=== PATIENT | male | born 1985 | race Caucasian/White ===

== ENCOUNTER 2025-07-06 11:55 | Emergency (ER) | payer BC ==
[2025-07-06] MEDS: Ketorolac 30 MG/ML SDV IM ONE (12:10)
[2025-07-06] MEDS ORDERED: Sodium Chloride 0.9% 10 ML Syringe FLUSH PRN (12:11)
[2025-07-06] MEDS ORDERED: Sodium Chloride 0.9% 2.5 ML Syringe FLUSH PRN (12:11)
[2025-07-06 12:42] LABS: BASOPHILS ABSOLUTE AUTO 0.03 K/uL (0.00-0.20); BASOPHILS PERCENT AUTO 0.4 % (0.0-1.0); EOSINOPHILS ABSOLUTE AUTO 0.11 K/uL (0.00-0.45); EOSINOPHILS PERCENT AUTO 1.4 % (0.0-6.0); IMMATURE GRAN ABSOLUTE AUTO 0.03 K/uL (0.00-0.05); IMMATURE GRAN PERCENT AUTO 0.4 % (0.0-0.4); LYMPHOCYTES ABSOLUTE AUTO 1.40 K/uL (1.00-4.80); LYMPHOCYTES PERCENT AUTO 17.9 % (24.0-44.0); MEAN PLATELET VOLUME 10.2 fL (9.4-12.4); MONOCYTES ABSOLUTE AUTO 0.81 K/uL (0.00-0.80); MONOCYTES PERCENT AUTO 10.3 % (0.0-8.0); NEUTROPHILS ABSOLUTE AUTO 5.45 K/uL (1.80-7.70); NEUTROPHILS PERCENT AUTO 69.6 % (41.0-71.0); NRBC ABSOLUTE 0.00 K/uL (0.00-0.02); NRBC PERCENT 0.0 /100WBC (0.0-0.2); PLATELET COUNT,PLT 260 K/uL (150-400); RED BLOOD CELL COUNT 4.48 M/uL (4.52-5.90); WHITE BLOOD CELL COUNT,WBC 7.83 K/uL (3.9-11.3)
[2025-07-06 12:42] LABS: APPEARANCE,URINE CLEAR; GLUCOSE,URINE NEGATIVE (NEGATIVE); OCCULT BLOOD,URINE NEGATIVE (NEGATIVE)
[2025-07-06] MEDS: Ketorolac 30 MG/ML SDV IVPUSH ONE (12:51)
[2025-07-06 13:02] LABS: A/G RATIO 1.0 (0.9-1.6); ALANINE AMINOTRANSFERASE,ALT 37.0 IU/L (14-63); ASPARTATE AMNIOTRANSFERASE,AST 21.0 IU/L (15-37); BILIRUBIN TOTAL 0.4 mg/dL (0.2-1.0); BLOOD UREA NITROGEN,BUN 18.0 mg/dL (7.0-18.0); CARBON DIOXIDE,CO2 26.2 mmol/L (21.0-32.0); CHLORIDE,CL 104.0 mmol/L (98-107); CREATINE KINASE,CK 178.0 U/L (26-308); CREATININE 0.9 mg/dL (0.8-1.3); EST CRCL DRUG DOSING (CG) 129.1 mL/min; ESTIMATED GFR 110.0 mL/min (>60); GLUCOSE RANDOM 101.0 mg/dL (74-106); POTASSIUM,K 4.1 mmol/L (3.5-5.1); PROTEIN TOTAL,TP 6.9 g/dL (6.4-8.2); SODIUM,NA 141.0 mmol/L (136-148)
== END 2025-07-06 14:42 | disposition home or self-care (01) ==
LOC: MW.ED 11:55
DX: N50.812 Left testicular pain (principal); Z79.899 Other long term (current) drug therapy
CPT/HCPCS: 36415; 76870; 80053; 81003; 82550; 85025; 93976; 96360; 96361; 96372; 99284; A9270; J0696; J1885; J2003; J7030; 99283